=== PATIENT | female | born 1990 | race Caucasian/White ===

== ENCOUNTER 2018-08-26 13:16 | Emergency (ER) | payer BC ==
[2018-08-26 13:35] VITALS: BP 101/80; PULSE 90; TEMP 98.1; BMI 25.0
--- NOTE | 2018-08-26 13:58 | PDOC ---
History of Present Illness - General Chief Complaint: Cold Symptoms Stated Complaint: BACK PAIN Time Seen by Provider: 08/26/18 13:32 History Source: Patient - History of Present Illness Timing/Duration: reports: other Associated Symptoms: reports: cough, fever/chills, muscle aches. denies: chest pain/soreness, earache, facial pain, nasal congestion, shortness of breath, sinus infection, sore throat, wheezing Past History - Past Medical History Allergies/Adverse Reactions: Allergies Allergy/AdvReac Type Severity Reaction Status Date / Time No Known Allergies Allergy Verified 08/26/18 13:25 Home Medications: Ambulatory Orders NK [No Known Home Medication] 08/26/18 Cancer: No Cardiac Disorders: No COPD: No - Surgical History Abdominal Surgery: Yes (appendectomy, ovarian cyst removed) - Suicide/Smoking/Psychosocial Hx Smoking History: Never smoked Hx Alcohol Use: No Drug/Substance Use Hx: No Review of Systems - Review of Systems Constitutional: Yes: Chills, Fever, Malaise, Weakness HEENTM: No: Ear Pain, Throat Pain Respiratory: Yes: Cough. No: Shortness of Breath, Wheezing Cardiac (ROS): No: Chest Pain ABD/GI: No: Diarrhea, Nausea, Vomiting Musculoskeletal: No: Neck Pain Integumentary: No: Rash *Physical Exam - Vital Signs Last Vital Signs Temp Pulse Resp BP Pulse Ox 98.1 F 90 20 101/80 98 08/26/18 13:26 08/26/18 13:26 08/26/18 13:26 08/26/18 13:26 08/26/18 13:26 - Physical Exam Comments: 08/26/18 13:56 vicky uncomfortable General Appearance: Yes: Appropriately Dressed HEENT: positive: Normal ENT Inspection, Normal Voice. negative: Scleral Icterus (R), Scleral Icterus (L) Neck: positive: Supple. negative: Lymphadenopathy (R), Lymphadenopathy (L) Respiratory/Chest: positive: Lungs Clear, Normal Breath Sounds. negative: Respiratory Distress Cardiovascular: positive: Regular Rate, S1, S2 Gastrointestinal/Abdominal: positive: Soft. negative: Tender Integumentary: positive: Dry, Warm Neurologic: positive: Fully Oriented, Alert, Normal Mood/Affect Medical Decision Making - Medical Decision Making 08/26/18 13:53 27-year-old female, no significant history, here with malaise with body aches, cough and subjective fever 3 days. No shortness of breath, nausea, vomiting, diarrhea, rash, neck pain, CARRIZALES or photophobia. No sick contacts or recent travel. Currently taking Motrin at home See exam Viral syndrome, r/o flu though no indication for tamiflu at this time Vicky uncomfortable but stable in ED Declines pain meds here 08/26/18 14:25 Flu neg. Dc w/ supportive tx *DC/Admit/Observation/Transfer Diagnosis at time of Disposition: Viral syndrome - Discharge Dispostion Disposition: HOME Condition at time of disposition: Stable - Referrals - Patient Instructions Printed Discharge Instructions: DI for Viral Syndrome Additional Instructions: You most likely have a viral illness. Viral illnesses usually run their course as the body naturally fights it off. Treatment is to rest, maintain adequate hydration and take Motrin or Tylenol for pain and/or fever Return to ER as needed - Post Discharge Activity Forms/Work/School Notes: Back to Work
== END 2018-08-26 14:31 | disposition home or self-care (01) ==
LOC: JERFT 13:16
DX: B34.9 Viral infection, unspecified (principal)
CPT/HCPCS: 87804; 99281-25

== ENCOUNTER 2023-03-27 09:53 | Emergency (ER) | payer OTHER ==
[2023-03-27] MEDS ORDERED: ACETAMINOPHEN 500 MG TABLET (FP) PO ONE (11:17)
[2023-03-27 11:36] VITALS: BP 121/64; PULSE 76; RESP 18; TEMP 98; BMI 23.3
[2023-03-27] MEDS ORDERED: ACETAMINOPHEN 325 MG TABLET (FP) ONE (11:41)
== END 2023-03-27 12:40 | disposition home or self-care (01) ==
LOC: JERFT 09:53
DX: M54.9 Dorsalgia, unspecified (principal); R07.2 Precordial pain; R10.13 Epigastric pain; V49.40XA Driver injured in collision with unspecified motor vehicles in traffic accident, initial encounter; Y93.I9 Activity, other involving external motion
CPT/HCPCS: 71046-TC-FY; 93005; 93010; 99284-25